=== PATIENT | female | born 1955 ===

== ENCOUNTER 2024-01-26 18:30 | Inpatient (IN) | payer BC ==
[~2024-01-26] VITALS: Ht 152.4 cm; Wt 93.9 kg
[2024-01-26 21:39] VITALS: PULSE 83; RESP 18; O2SAT 95
[2024-01-26] MEDS ORDERED: ONDANSETRON HCL 4 MG/2 ML VIAL IV PRN (22:00)
[2024-01-26] MEDS ORDERED: ACETAMINOPHEN 325 MG TAB PO PRN (22:00)
[2024-01-26] MEDS ORDERED: NITROGLYCERIN 0.4 MG SL TAB SL PRN (22:00)
[2024-01-26] MEDS ORDERED: MORPHINE SULFATE INJ 2 MG/ml SYRG IV PRN (22:00)
[2024-01-26 23:09] LABS: Chloride 112 mmol/L (98-107); Potassium 3.5 mmol/L (3.5-5.1); Sodium 143 mmol/L (136-145)
[2024-01-26 23:10] LABS: Anion Gap 5 (5-15); Calcium 9.1 mg/dL (8.7-10.4); Carbon Dioxide 26 mmol/L (20-30)
[2024-01-26 23:15] LABS: BUN/Creatinine Ratio 7.6 (10.0-20.0); Blood Urea Nitrogen 6 mg/dL (9-23); Glucose 98 mg/dL (74-106)
[2024-01-26 23:16] LABS: INR 1.16 (0.9-1.15); Magnesium 1.9 mg/dL (1.6-2.6); Prothrombin Time 12.2 sec (9.3-11.8)
[2024-01-26] MEDS: ATORVASTATIN 20 MG TAB PO SCH (23:48)
[2024-01-27] VITALS (8 sets, daily range): BP systolic 101–115; BP diastolic 44–80; PULSE 64–90; RESP 16–19; TEMP 97.5–98.2; O2SAT 91–94
[2024-01-27] MEDS: HYDROcodone-ACET 5/325MG TAB PO PRN (00:56)
[2024-01-27] MEDS: MELATONIN 5 MG TAB PO PRN (00:59)
[2024-01-27] MEDS ORDERED: ALEN70TA21 PO (03:48)
[2024-01-27] MEDS ORDERED: TRAM50TA2 PO (03:54)
[2024-01-27] MEDS ORDERED: ASPI-543 PO (03:54)
[2024-01-27] MEDS ORDERED: MAGN400T40 OR (03:54)
[2024-01-27] MEDS ORDERED: METH4TAB9 PO (03:54)
[2024-01-27] MEDS ORDERED: FLUT0.05 NAS (03:54)
[2024-01-27] MEDS ORDERED: ROSU20TA14 PO (03:54)
[2024-01-27] MEDS ORDERED: AML5T PO (03:54)
[2024-01-27 06:30] LABS: Basophils # (auto) 0 10 ^3/uL (0-0.2); Basophils % (auto) 0.7 % (0.0-2.0); Eosinophils # (auto) 0.1 10 ^3/uL (0-0.8); Eosinophils % (auto) 1.6 % (0.0-7.0); Hematocrit 34.6 % (36.0-46.0); Lymphocytes # (auto) 1.6 10 ^3/uL (0.4-5.4); Lymphocytes % (auto) 34.4 % (10.0-50.0); Mean Corpuscular Hemoglobin 29.1 pg (28.0-32.0); Mean Corpuscular Hgb Conc. 34.6 g/dL (32.0-36.0); Monocytes # (auto) 0.6 10 ^3/uL (0-1.3); Monocytes % (auto) 12.7 % (0.0-12.0); Neutrophils # (auto) 2.3 10 ^3/uL (1.6-8.6); Neutrophils % (auto) 50.6 % (37.0-80.0); Nucleated Red Blood Cells % 0.1 %; Platelet Count (auto) 125 10^3/uL (140-450); Red Blood Cells 4.12 10^6/uL (4.0-5.20); Red Cell Distribution Width 15.8 % (11.8-14.3); White Blood Cell 4.6 10^3/uL (4.4-10.8)
[2024-01-27 06:39] LABS: Chloride 112 mmol/L (98-107); Potassium 3.3 mmol/L (3.5-5.1); Sodium 142 mmol/L (136-145)
[2024-01-27 06:40] LABS: Anion Gap 6 (5-15); Calcium 8.9 mg/dL (8.7-10.4); Carbon Dioxide 24 mmol/L (20-30)
[2024-01-27 06:45] LABS: BUN/Creatinine Ratio 8.7 (10.0-20.0); Blood Urea Nitrogen 6 mg/dL (9-23); Glucose 89 mg/dL (74-106)
[2024-01-27] MEDS: FAMOTIDINE 20 MG TAB PO SCH (09:32)
[2024-01-27] MEDS: ASPirin 81 mg TAB PO SCH (09:32)
[2024-01-27] MEDS: cefTRIAXone 1GM/50ML D5W 50 ML IV SCH (09:36)
[2024-01-27] MEDS: POTASSIUM CHL 20 Meq TABLET PO ONE (21:57)
[2024-01-28 01:00] VITALS: BP 108/54; PULSE 79; RESP 18; TEMP 98.1; O2SAT 94
[2024-01-28 05:00] VITALS: BP_SYST 101; BP_SYST 114; BP_SYST 97; BP_DIAS 53; BP_DIAS 61; BP_DIAS 63; PULSE 81; PULSE 85; PULSE 88; RESP 18; TEMP 98; O2SAT 92
[2024-01-28 07:00] LABS: Anion Gap 7 (5-15); Carbon Dioxide 24 mmol/L (20-30); Chloride 110 mmol/L (98-107); Sodium 141 mmol/L (136-145)
[2024-01-28 07:01] LABS: Calcium 9.4 mg/dL (8.7-10.4)
[2024-01-28 07:06] LABS: BUN/Creatinine Ratio 9.2 (10.0-20.0); Blood Urea Nitrogen 7 mg/dL (9-23); Glucose 86 mg/dL (74-106)
[2024-01-28 08:00] VITALS: PULSE 81
[2024-01-28 08:36] VITALS: BP 96/55; PULSE 84; RESP 20; TEMP 98; O2SAT 95
[2024-01-28] MEDS ORDERED: BACDST PO (11:56)
[2024-01-28] MEDS ORDERED: PANT40TA57 PO (11:56)
[2024-01-28 13:07] VITALS: BP 105/54; PULSE 84; RESP 20; TEMP 97.7; O2SAT 94
[2024-01-28 13:17] LABS: Urine Bacteria FEW /hpf (None Seen); Urine Blood TRACE /uL (Negative); Urine Clarity Clear (Clear); Urine Color Light-Yellow (Yellow); Urine Mucus FEW (None Seen); Urine Protein, UAD 1+ (Negative); Urine Urobilinogen Normal (Negative); Urine WBC 1 /hpf (0 - 5); Urine pH 7.5 (5.0-9.0)
[2024-01-28 14:47] VITALS: TEMP 36.5
== END 2024-01-28 15:45 | disposition home or self-care (01) | DRG 690 ==
LOC: TELE-CENTR 21:16
PROVIDERS: ADMIT Hospitalist; ATTEND Hospitalist
DX: N30.01 Acute cystitis with hematuria (principal); E87.6 Hypokalemia; E78.5 Hyperlipidemia, unspecified; I10 Essential (primary) hypertension; E66.9 Obesity, unspecified; J44.9 Chronic obstructive pulmonary disease, unspecified; Z79.899 Other long term (current) drug therapy; Z79.82 Long term (current) use of aspirin; Z82.49 Family history of ischemic heart disease and other diseases of the circulatory system; Z82.5 Family history of asthma and other chronic lower respiratory diseases; Z68.39 Body mass index [BMI] 39.0-39.9, adult; K21.9 Gastro-esophageal reflux disease without esophagitis
CPT/HCPCS: 36415; 80048; 81001; 83735; 83880; 84484; 85025; 85610; 87086; 93306; 93970; G0378